=== PATIENT | male | born 1950 | race Caucasian/White ===

== ENCOUNTER 2018-10-30 08:09 | Day surgery (SDC) | payer BC ==
[2018-10-29 09:24] VITALS: BMI 24.3
[~2018-10-30 08:09] MED LIST: PROPOFOL 200 MG/20 ML VIAL ONE; ePHEDrine/0.9% NaCl/PF SYRINGE 50 mg/10 ml ONE
--- NOTE | 2018-10-30 16:10 | OP ---
DATE OF PROCEDURE: 10/30/2018 PREPROCEDURE DIAGNOSES: 1. Prior history of colon polyp removed five years ago. The ablated pathology was not available. 2. The patient recently had a sebaceous adenoma removed from his arm and his special events manager told him he need to have hereditary polyposis syndromes ruled out. 3. No family history of colorectal cancer or liver disease, uterine cancer, ovarian cancer, breast cancer, stomach cancer, pancreas cancer, or urogenital cancer. POSTOPERATIVE DIAGNOSES: Three small polyps in the rectosigmoid colon, which appeared to be hyperplastic, one was up to 7 mm in size. These were removed by hot snare polypectomy technique and submitted to pathology. RECOMMENDATIONS: 1. If these polyps were adenomas or serrated adenomas, we will consider genetic testing, but in a gentleman of this age with no family history and no previous malignancies, the likelihood of familial cancer syndrome is very low. 2. Repeat colonoscopy will depend on the findings of pathology. ANESTHESIA: TIVA. PROCEDURE IN DETAIL: The patient was informed of the risks, benefits, possible complications of endoscopy including perforation, reaction to medication, and aspiration. Informed consent was obtained. The patient was brought to endoscopy suite whey he stayed in a gradual fashion. Once he was comfortable, rectal exam was performed, which revealed normal prostate. The endoscope was advanced through the anal canal through the colon to the cecum, which was identified by ileocecal valve and appendiceal orifice. The terminal ileum was normal. The prep was good. The scope was slowly removed out of the colon with no polyps or masses seen. There was diverticulosis coli throughout the left colon. There were three small flat polyps with the appearance of hyperplastic polyps in the rectosigmoid colon. These were removed by hot snare polypectomy and submitted to pathology. Retroflexed views were normal. The scope was removed. The patient tolerated the procedure well with no complications. Job ID: [id number]
== END 2018-10-30 12:10 | disposition home or self-care (01) ==
LOC: SDC 08:09
PROVIDERS: ATTEND Internal Medicine Gastroenterology
PROC: 0DBN8ZZ Excision of Sigmoid Colon, Via Natural or Artificial Opening Endoscopic (ICD-10-PCS; principal; 2018-10-30)
DX: Z12.11 Encounter for screening for malignant neoplasm of colon (principal); Z80.0 Family history of malignant neoplasm of digestive organs; K63.5 Polyp of colon; K57.30 Diverticulosis of large intestine without perforation or abscess without bleeding; I25.10 Atherosclerotic heart disease of native coronary artery without angina pectoris; E11.9 Type 2 diabetes mellitus without complications; E78.00 Pure hypercholesterolemia, unspecified; I10 Essential (primary) hypertension; Z95.0 Presence of cardiac pacemaker; Z79.82 Long term (current) use of aspirin; Z79.899 Other long term (current) drug therapy; Z79.84 Long term (current) use of oral hypoglycemic drugs
CPT/HCPCS: 88305; J2704

== ENCOUNTER 2020-03-28 07:14 | Day surgery (SDC) | payer BC ==
[2020-03-27 15:35] VITALS: BMI 24.4
--- NOTE | 2020-03-28 09:48 | CT ---
CT lumbar spine with contrast: (CT lumbar myelogram DATE: 03/28/2020 HISTORY: 69-year-old male with ICD-10: M 48.062 lumbar stenosis with neurogenic claudication COMPARISON: Noncontrast CT of 10/18/2016 FINDINGS: Transitional level at thoracolumbar junction. For the purposes of this report, the level with bilater ally hypoplastic ribs will be designated as T12. Consequently, the last lumbar-type vertebra will be designated as L5, which is consistent with the designation used on the prior report. Vertebral body heights are maintained. Conus medullaris terminates at L2. T12-L1: Slight retrolisthesis of T12 on L1. The asymmetric central and bilateral paracentral small br oad-based disc herniation indenting the ventral aspect of thecal sac is again demonstrated. No significant spinal canal stenosis. Mild bilateral neural foraminal stenosis. L1-2: Essentially normal. L2-3: Moderate disc space narrowing. Diffuse disc bulge. Moderate ligamentum flavum thickening. Moder ate bilateral facet DJD. In addition to the ligamentum flavum thickening and facet osteophytes that encroach upon the posterior aspect of the spinal canal, there is a superimposed small, low-attenuatio n 0.5 x 0.4 cm extradural mass indenting the left posterior aspect of thecal sac, displacing cauda equina nerve roots, consistent with a synovial cyst. Overall degree of central spinal canal stenosis is severe. Bilateral mild to moderate neural foraminal stenosis., Left worse than right. L3-4: Moderate disc space narrowing. Vacuum disc phenomenon. Retrolisthesis of L3 on L4. Broad disc b ulge-osteophytic bar complex. Moderate right facet DJD. Mild to moderate left facet DJD. Mild ligamentum flavum thickening. Moderate central spinal canal stenosis. Posterior epidural fat pad. Amish ewhat severe thecal sac stenosis. Moderate right neural foraminal stenosis. Mild to moderate left neural foraminal stenosis. Probably no major interval change. L4-5: Severe disc space narrowing, vacuum disc phenomenon, endplate sclerosis, and circumferential en dplate broad osteophytes that encroach upon the anterior aspect of spinal canal. Severe bilateral facet DJD with facet hypertrophy and osteophytes. Severe bilateral neural foraminal stenosis. Severe central spinal canal stenosis. Circumferential epidural fat pad. Extremely severe thecal sac stenosis at that no intrathecal contrast material is present in the thecal sac, from the the pedicle level of L4 to the S1 level. L5-S1: Interval worsening of disc space narrowing, now severe. Vacuum disc phenomenon. Endplate scler osis. Severe right facet DJD and moderate left facet DJD result in mild grade 1 anterolisthesis of L5 on S1, unchanged. Previously, there was a tiny focal gas density in the left anterior aspect of th e spinal canal representing small disc herniation. That is no longer present. Instead, there is a larger, approximately 1 x 1.2 x 1 cm gas filled disc extrusion in the right anterior aspect of the sp inal canal, effacing the right ventral aspect of thecal sac, compressing the right S1 nerve root and displacing it to the right, and with superior migration to the pedicle level of L5. No high-grade stenosis of the bony central spinal canal. No intrathecal contrast at the L5-S1 disc space level, broad intrathecal contrast does fill the thecal sac throughout the S1 and upper S2 levels. Very sever e bilateral neural foraminal stenosis with chronic compression and deformity of the exiting bilateral L5 nerve roots appears slightly worse than before. IMPRESSION: 1. Severe lumbar spondylosis, with multilevel severe degenerative disc disease and severe facet osteo arthrosis. 2. Moderate-sized right paracentral extruded disc herniation at L5-S1, compressing the right S1 nerve root, and with superior migration. 3. Spinal block at L4-5 with no intrathecal contrast material visible at that level, due to extremely severe thecal sac stenosis (although intrathecal contrast is visible at the S1 level). 4. Very severe chronic bilateral neural foraminal stenosis at L5-S1. 5. Other levels of high-grade central spinal canal stenosis and high-grade neural foraminal stenosis as detailed above.
--- NOTE | 2020-03-28 11:13 | RAD ---
MYELOGRAM LUMBAR: DATE: 03/28/2020 HISTORY: 69-year-old male with M 48.062 lumbar stenosis with neurogenic claudication TECHNIQUE: Signed informed consent obtained. Patient placed prone on fluoroscopy table. Skin of lower back prepa red and draped in usual sterile fashion. 25-gauge needle used to apply buffered lidocaine superficially and deeply. Level selected:L2-3. Approach:right paramedian interlaminar. 22-gauge spinal needle advanced into spinal canal under brief, intermittent fluoroscopy. Upon return of clear CSF, 10 mL Isovue [id number] media was injected into the intrathecal space. Spinal needle was removed. Patient tolerated procedure well. No complications. Total fluoroscopy time:1.3 minutes. Dose area product:178.5 uGy*m^2. FINDINGS: Transitional level at thoracolumbar junction. Level with hypoplastic ribs will be designated as T12. L5 mildly transitional lumbar vertebra type I B. Severe degenerative disc disease at L4-5 and L5-S1. Mild grade 1 anterolisthesis of L5 on S1 due to severe facet DJD. Fluoroscopic image demonstra bettie contrast injection with intrathecal contrast media in the upper and mid lumbar spine, but no contrast inferior to L4-5. IMPRESSION: Severe lumbar spondylosis with high-grade degenerative disc disease and facet osteoarthrosis, includi ng spinal canal blockage at L4-5. See separate report of subsequent CT lumbar myelogram.
[2020-03-28 11:27] VITALS: BP 176/85; TEMP 97.6
[2020-03-28] MEDS ORDERED: Iopamidol-M 200 41% 20 ML VIAL ONE (15:25)
== END 2020-03-28 10:10 | disposition home or self-care (01) ==
LOC: RAD 07:14
PROVIDERS: ATTEND Neurological Surgery
PROC: B02B1ZZ Computerized Tomography (CT Scan) of Spinal Cord using Low Osmolar Contrast (ICD-10-PCS; principal; 2020-03-28)
DX: M48.062 Spinal stenosis, lumbar region with neurogenic claudication (principal); M51.26 Other intervertebral disc displacement, lumbar region; M47.816 Spondylosis without myelopathy or radiculopathy, lumbar region; E11.9 Type 2 diabetes mellitus without complications; I10 Essential (primary) hypertension; F17.200 Nicotine dependence, unspecified, uncomplicated; E78.00 Pure hypercholesterolemia, unspecified; E78.5 Hyperlipidemia, unspecified; Z95.5 Presence of coronary angioplasty implant and graft; Z95.810 Presence of automatic (implantable) cardiac defibrillator
CPT/HCPCS: 62304; 72132; Q9966

== ENCOUNTER 2020-09-13 06:22 | Outpatient (CLI) | payer BC ==
[2020-09-13 10:40] LABS: Hemoglobin 16.1 g/dL (14.0-18.0); Mean Corpuscular HGB CONC 33.4 G/DL (32.0-36.0); Mean Corpuscular Hemoglobin 35.9 PG (27.0-33.0); Mean Corpuscular Volume 107.6 fl (80.0-100.0); Mean Platelet Volume 10.8 fl (7.4-10.4); Platelet Count 123 10x3/uL (130-400); RBC Distribution Width 13.4 % (11.5-14.5); Red Blood Cell (RBC) Count 4.48 10x6/uL (4.40-5.80)
[2020-09-13 11:30] LABS: Anion Gap 11 mmol/L (10-20); BUN (Urea Nitrogen) 27 mg/dL (8.4-25.7); Calc. Creatinine Clearance 0 mL/min (70-130); Calcium 9.5 mg/dL (7.8-10.44); Carbon Dioxide 26 mmol/L (23-31); Chloride 110 mmol/L (98-107); Estimated GFR-MDRD 44; Glucose 206 mg/dL (83-110); Potassium 5.4 mmol/L (3.5-5.1); Sodium 142 mmol/L (136-145)
[2020-09-14 14:42] LABS: SARS-CoV-2 MS2 Positive; SARS-CoV-2 N Gene Negative; SARS-CoV-2 S Gene Negative; SARS-CoV-2 by NAA Not Detected (NotDetected); SARS-CoV-2 orf1ab Negative
== END 2020-09-13 06:23 | disposition home or self-care (01) ==
LOC: LABBT 06:22
PROVIDERS: ATTEND Neurological Surgery
DX: Z01.812 Encounter for preprocedural laboratory examination (principal); Z20.828 Contact with and (suspected) exposure to other viral communicable diseases; M48.062 Spinal stenosis, lumbar region with neurogenic claudication
CPT/HCPCS: 80048; 85027; 87635; U0003

== ENCOUNTER 2020-09-18 07:24 | Inpatient (IN) | payer BC ==
[2020-09-15 12:21] VITALS: BMI 24.4
[2020-09-18] MEDS ORDERED: Ketamine 50 MG/ML (10ML VIAL) ONE (10:10)
[2020-09-18] MEDS ORDERED: Midazolam HCl 2 mg/2 ml Vial ONE (10:10)
[2020-09-18] MEDS ORDERED: Fentanyl 100 MCG/2 ML VIAL ONE ×4 (10:10→13:27)
[2020-09-18] MEDS ORDERED: PHENYLEPHRINE-NS 100 MCG/ML 10 ML SYRINGE ONE ×2 (11:27→11:45)
[2020-09-18] MEDS ORDERED: PROPOFOL 200 MG/20 ML VIAL ONE (11:45)
[2020-09-18] MEDS ORDERED: Rocuronium Bromide 10 MG/ML (10ML VIAL) ONE (11:45)
[2020-09-18] MEDS ORDERED: Dexamethasone 20 MG/5 ML VIAL ONE (11:45)
[2020-09-18] MEDS ORDERED: diphenhydrAMINE 50 MG/ML VIAL ONE (11:45)
[2020-09-18] MEDS ORDERED: Ondansetron PF 4 MG/2 ML Vial ONE (11:45)
[2020-09-18] MEDS ORDERED: Glycopyrrolate 0.2 MG/ML 5 ML SYRINGE ONE (11:45)
[2020-09-18] MEDS ORDERED: EPHEDRINE 25 MG/5 ML SYRINGE ONE (11:45)
[2020-09-18] MEDS ORDERED: SUGAMMADEX SODIUM 200 MG/2 ML VIAL ONE (11:54)
[2020-09-18] MEDS ORDERED: Ondansetron HCl/PF 4 MG/2 ML Vial IVP PRN (12:17)
--- NOTE | 2020-09-18 14:39 | OP ---
DATE OF PROCEDURE: 09/18/2020 SURVEY CAD TECHNICIAN: Ruddy. PROCEDURES PERFORMED: 1. L4 through S1 decompressive laminectomy. 2. right L5-S1 diskectomy. DESCRIPTION OF PROCEDURE: The patient was brought to the operating room and intubated. he was rolled in prone position on gel-filled chest rolls. An incision was made, exposing L4 through S1 and levels were confirmed by x-ray. We performed complete L5, inferior L4, and superior S1 laminectomies completely, decompressing L4-L5 and L5-S1. We explored right L5-S1, but did not reveal a large disk herniation and there was no compression of the right S1 nerve root. the wound was extensively irrigated. MAC hemostasis was secured. Vancomycin powder was applied and the wound was closed in anatomic layers. Job ID: [id number]
[2020-09-18] MEDS ORDERED: Ondansetron PF 4 MG/2 ML Vial IM PRN (15:04)
[2020-09-18] MEDS ORDERED: Promethazine HCl 12.5 MG SUPP PR PRN (15:15)
[2020-09-18] MEDS ORDERED: diphenhydrAMINE 25 MG CAP PO PRN (15:15)
[2020-09-18] MEDS ORDERED: Promethazine 25 MG TAB PO PRN (15:15)
[2020-09-18] MEDS ORDERED: Morphine 4 MG/ML VIAL SLOW IVP PRN (15:15)
[2020-09-18] MEDS ORDERED: Mag-Al 1200 mg/1200 mg/30 ML UDCUP PO PRN (15:15)
[2020-09-18] MEDS ORDERED: Promethazine HCl 25 MG/ML VIAL IM PRN (15:15)
[2020-09-18] MEDS ORDERED: diphenhydrAMINE 50 MG/ML VIAL IVP PRN (15:15)
[2020-09-18] MEDS ORDERED: Morphine 2 MG/ML VIAL SLOW IVP PRN (15:15)
[2020-09-18] MEDS ORDERED: traMADol HCl 50 MG TAB PO PRN ×2 (15:15)
[2020-09-18] MEDS ORDERED: tiZANidine HCl 4 MG TAB PO PRN (15:15)
[2020-09-18] MEDS ORDERED: Milk Of Magnesia 30 ML UDCUP PO PRN (15:15)
[2020-09-18] MEDS ORDERED: Acetaminophen/Codeine 30-300mg Tablet PO PRN ×2 (15:15)
[2020-09-18] MEDS: Sodium Chloride 0.9% 1,000 ML IV SCH (16:57)
[2020-09-18] MEDS: CEFAZOLIN 2 GM in Premix Bag 1 BAG IVPB SCH (17:03)
[2020-09-18] MEDS: metFORMIN 500 MG TAB PO SCH (20:53)
[2020-09-18] MEDS: Atorvastatin Calcium 40 MG TAB PO SCH (20:53)
[2020-09-18] MEDS: Pioglitazone HCl 15 MG TAB PO SCH (20:53)
[2020-09-18] MEDS: Carvedilol 25 MG TAB PO SCH (20:53)
[2020-09-18] MEDS: Cepastat Lozenges 1 LOZ PO PRN (20:57)
[2020-09-19] MEDS: CEFAZOLIN 2 GM in Premix Bag 1 BAG IVPB SCH ×3 (02:55→17:48)
[2020-09-19] MEDS: Cepastat Lozenges 1 LOZ PO PRN (02:56)
[2020-09-19] MEDS: Tamsulosin HCl 0.4 MG CAP PO SCH (05:28)
[2020-09-19] MEDS: Sodium Chloride 0.9% 1,000 ML IV SCH ×2 (06:22→17:48)
--- NOTE | 2020-09-19 06:58 | PRG ---
DATE OF SERVICE: 09/19/2020 The patient is postop day #1, status post L4-S1 decompression and a right L5-S1 diskectomy. Following the surgery, he was transitioned to the Med/Surg floor, where his pain has been well controlled with p.o. medications, he is tolerating regular diet and voiding appropriately. Does have a MALLY drain, which was placed intraoperatively, which approximately 100 mL last night. OBJECTIVE: GENERAL: This morning, the patient is awake, in no acute distress. EXTREMITIES: Free active range of motion of all extremities. No focal motor weakness. Incision is clean and dry. There is a moderate amount of dark red blood in the MALLY bulb. The patient is doing well with regard to pain control and mobilization. We will go ahead and leave his MALLY drain another day. I anticipate removal tomorrow and possibly home at that time. Job ID: [id number]
[2020-09-19] MEDS: Lisinopril 20 MG TAB PO SCH (08:07)
[2020-09-19] MEDS: Carvedilol 25 MG TAB PO SCH ×2 (08:08→20:43)
[2020-09-19] MEDS: Dronedarone HCl 400 MG TAB PO SCH (08:08)
[2020-09-19] MEDS: Pioglitazone HCl 15 MG TAB PO SCH ×2 (08:08→20:43)
[2020-09-19] MEDS: metFORMIN 500 MG TAB PO SCH ×2 (08:08→20:43)
--- NOTE | 2020-09-19 10:15 | PRG ---
DATE OF SERVICE: 09/19/2020 Mr. Burdick is doing well postoperative day #1 following lumbar laminectomy. He is mobilizing reasonably well. His drain output has precluded removal today. Job ID: [id number]
[2020-09-19] MEDS: Atorvastatin Calcium 40 MG TAB PO SCH (20:43)
[2020-09-20] MEDS: CEFAZOLIN 2 GM in Premix Bag 1 BAG IVPB SCH (02:15)
[2020-09-20] MEDS: Cepastat Lozenges 1 LOZ PO PRN ×2 (02:18→05:16)
[2020-09-20 03:33] VITALS: TEMP 98.2
[2020-09-20] MEDS: Tamsulosin HCl 0.4 MG CAP PO SCH (05:05)
[2020-09-20] MEDS: Sodium Chloride 0.9% 1,000 ML IV SCH (07:33)
[2020-09-20 08:00] VITALS: BP 125/72
[2020-09-20] MEDS: Lisinopril 20 MG TAB PO SCH (08:12)
[2020-09-20] MEDS: Dronedarone HCl 400 MG TAB PO SCH (08:12)
[2020-09-20] MEDS: Carvedilol 25 MG TAB PO SCH (08:13)
[2020-09-20] MEDS: metFORMIN 500 MG TAB PO SCH (08:13)
[2020-09-20] MEDS: Pioglitazone HCl 15 MG TAB PO SCH (08:13)
--- NOTE | 2020-09-20 11:31 | DIS ---
DATE OF ADMISSION: 09/18/2020 DATE OF DISCHARGE: 09/20/2020 PROCEDURE: L4-S1 decompression, L5-S1 right-sided diskectomy. DISCHARGE SUMMARY: Patient is a 70-year-old male recently evaluated in our office for progressive claudicatory leg pain, particularly on the right. He was found to have significant stenosis from L4-S1 and a right-sided disk extrusion at L5-S1. The patient underwent L4-S1 decompression and right-sided discectomy at L5-S1. Following the surgery, he was transitioned to the Med/Surg floor, where his pain has been well controlled with p.o. medication, he has been tolerating a regular diet, and he has been voiding appropriately. He has been ambulating in the department easily. MALLY drain was placed intraoperatively and we have been monitoring this closely and MALLY output has trended down significantly. His drain was removed on postoperative day 2. We will plan to dismiss the patient to home. I have discussed home care precautions and we will follow up with the patient in 2 weeks in my office. Job ID: [id number]
--- NOTE | 2020-10-10 23:15 | PQF ---
CLINICAL DOCUMENTATION CLARIFICATION FORM: Dear : Danny Chapman Date / Time: 10/11/2020 Please exercise your independent, professional judgment in responding to the clarification form. Clinical indicators are provided on the bottom of this form for your review Procedure: Right L5-S1 diskectomy [x ] Decompressive laminectomy with diskectomy [ ] Decompressive laminectomy without diskectomy [ ] Unable to determine [ ] Other procedure: To be completed by CDI/Coding staff for physician review: Present Clinical Indicators - Signs / Symptoms / Labs Results and Location in Medical Record [ x ] Procedures performed: L4 through S1 decompressive laminectomy with right L5-S1 diskectomy OP report 09/18/20 by Danny Chapman [ x ] We performed complete L4, L5 and S1 laminectomies, decompressing L4-5 and L5-S1. Explored right L5-S1, but did not reveal a large disk herniation and no compression of the right S1 nerve root OP report 09/18/20 by Danny Chapman [ x ] Patient was found to have stenosis from L4-S1 and right disk extrusion at L5-S1 and underwent L4-S1 decompression and right-sided diskectomy at L5-S1 Discharge summary [ ] Present Risk Factors Results and Location in Medical Record [ x ] Neurogenic claudication, stenosis at L4-S1 and right-sided disk extrusion at L5-S1 H and P Present Treatments Results and Location in Medical Record [ ] [ ] [ ] [ ] CDS/Compressor Mechanic Bus Signature: [id number] Phone #: Date/Time: 10/11/2020 This is a permanent part of the Medical Record [facility]
== END 2020-09-20 10:29 | disposition home or self-care (01) | DRG 520 ==
LOC: SDC 07:24 → OBSVTOIN 12:29 → SURG B 12:29
PROVIDERS: ADMIT Neurological Surgery; ATTEND Neurological Surgery
PROC: 01NB0ZZ Release Lumbar Nerve, Open Approach (ICD-10-PCS; principal; 2020-09-18)
PROC: 01NR0ZZ Release Sacral Nerve, Open Approach (ICD-10-PCS; 2020-09-18)
PROC: 0SB40ZZ Excision of Lumbosacral Disc, Open Approach (ICD-10-PCS; 2020-09-18)
DX: M48.062 Spinal stenosis, lumbar region with neurogenic claudication (principal); I48.91 Unspecified atrial fibrillation; I25.10 Atherosclerotic heart disease of native coronary artery without angina pectoris; E11.9 Type 2 diabetes mellitus without complications; M48.07 Spinal stenosis, lumbosacral region; M51.27 Other intervertebral disc displacement, lumbosacral region; I10 Essential (primary) hypertension; E78.5 Hyperlipidemia, unspecified; Z95.5 Presence of coronary angioplasty implant and graft; Z95.810 Presence of automatic (implantable) cardiac defibrillator
CPT/HCPCS: 76000; 96365; 96366; G0378; J0690; J1100; J1200; J2250; J2405; J2704; J3010; J3370; J7620